=== PATIENT | female | born 2000 | race Caucasian/White ===

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

== ENCOUNTER 2021-03-11 13:48 | Emergency (ER) | payer OTHER ==
[~2021-03-11] VITALS: Ht 165.1 cm; Wt 54.4 kg
[~2021-03-11 13:48] MED LIST changes: +PREDNISONE50 MG PO
[2021-03-11 14:17] LABS: BILIRUBIN Negative (Negative); BLOOD 1+ (Negative); CLARITY Cloudy (Clear); COLOR Dark Yellow (Yellow); GLUCOSE Negative (Negative); KETONE Negative (Negative); LEUKO ESTERASE 3+ (Negative); NITRITE Positive (Negative); PH 5.5 (4.5-8.0); SPECIFIC GRAVITY 1.015 (1.001-1.030)
[2021-03-11 14:33] LABS: BACTERIA 2+; EPITHELIAL CELLS 16-20; RBC 21-30 rbc/hpf (0-2); WBC TNTC wbc/hpf (0-5)
[2021-03-11] MEDS ORDERED: IBUPROFEN600 MG PO (16:11)
[2021-03-11] MEDS ORDERED: SEPTDS PO (16:11)
== END 2021-03-11 16:39 | disposition home or self-care (01) ==
LOC: ED 13:48
PROVIDERS: Physician Assistant
DX: S29.012A Strain of muscle and tendon of back wall of thorax, initial encounter (principal); Z79.899 Other long term (current) drug therapy; X58.XXXA Exposure to other specified factors, initial encounter; Y93.89 Activity, other specified; Y92.89 Other specified places as the place of occurrence of the external cause; Y99.8 Other external cause status

== ENCOUNTER 2021-09-25 21:53 | Emergency (ER) | payer OTHER ==
[~2021-09-25] VITALS: Ht 165.1 cm; Wt 52.2 kg
[~2021-09-25 21:53] MED LIST changes: +IBUPROFEN600 MG PO; +SEPTDS PO
[2021-09-26] MEDS ORDERED: ANTIBIOTIC28.4 GM T (02:40)
[2021-09-26] MEDS ORDERED: CEPHALEXIN500 M1 PO (02:40)
[2021-09-26] MEDS ORDERED: HYDROCODONE-AC1 EAC1 PO (02:58)
== END 2021-09-26 03:14 | disposition home or self-care (01) ==
LOC: ED 21:53
DX: S62.615A Displaced fracture of proximal phalanx of left ring finger, initial encounter for closed fracture (principal); S80.212A Abrasion, left knee, initial encounter; S60.512A Abrasion of left hand, initial encounter; M25.572 Pain in left ankle and joints of left foot; M79.652 Pain in left thigh; Z79.899 Other long term (current) drug therapy; W22.8XXA Striking against or struck by other objects, initial encounter; Y93.89 Activity, other specified; Y92.89 Other specified places as the place of occurrence of the external cause; Y99.8 Other external cause status

== ENCOUNTER → 2021-10-01 | Day surgery (SDC) | payer OTHER ==
[~2021-10-01] VITALS: Ht 167.6 cm; Wt 52.2 kg
[~2021-10-01] MED LIST changes: +ANTIBIOTIC28.4 GM T; +HYDROCODONE-AC1 EAC1 PO
[2021-10-01 09:37] VITALS: BP 106/62
[2021-10-01 12:45] VITALS: BP 134/70
[2021-10-01 13:00] VITALS: BP 119/74
[2021-10-01 13:15] VITALS: BP 123/69
[2021-10-01 13:30] VITALS: BP 118/68
== END | disposition home or self-care (01) ==
LOC: SDC 09-30 13:15
PROVIDERS: ATTEND Orthopaedic Surgery
DX: S62.615A Displaced fracture of proximal phalanx of left ring finger, initial encounter for closed fracture (principal); S63.042A Subluxation of carpometacarpal joint of left thumb, initial encounter; S80.212A Abrasion, left knee, initial encounter; V89.2XXA Person injured in unspecified motor-vehicle accident, traffic, initial encounter; Y93.89 Activity, other specified; Y92.89 Other specified places as the place of occurrence of the external cause; Y99.8 Other external cause status

== ENCOUNTER → 2021-10-18 | Outpatient (CLI) | payer OTHER | END | disposition home or self-care (01) | LOC: ORTHO 00:23 | PROVIDERS: ATTEND Orthopaedic Surgery | DX: S62.615D Displaced fracture of proximal phalanx of left ring finger, subsequent encounter for fracture with routine healing (principal); X58.XXXD Exposure to other specified factors, subsequent encounter ==

== ENCOUNTER → 2021-10-25 | Outpatient (CLI) | payer OTHER | END | disposition home or self-care (01) | LOC: ORTHO 02:20 | PROVIDERS: ATTEND Orthopaedic Surgery | DX: S62.615D Displaced fracture of proximal phalanx of left ring finger, subsequent encounter for fracture with routine healing (principal); S63.042D Subluxation of carpometacarpal joint of left thumb, subsequent encounter; X58.XXXD Exposure to other specified factors, subsequent encounter ==

== ENCOUNTER → 2021-11-15 | Outpatient (CLI) | payer OTHER | END | disposition home or self-care (01) | LOC: ORTHO 01:08 | PROVIDERS: ATTEND Orthopaedic Surgery | DX: S62.615D Displaced fracture of proximal phalanx of left ring finger, subsequent encounter for fracture with routine healing (principal); X58.XXXD Exposure to other specified factors, subsequent encounter ==

== ENCOUNTER → 2021-12-05 | Outpatient (CLI) | payer OTHER | END | disposition home or self-care (01) | LOC: ORTHO 02:17 | PROVIDERS: ATTEND Orthopaedic Surgery | DX: S62.615D Displaced fracture of proximal phalanx of left ring finger, subsequent encounter for fracture with routine healing (principal); S63.042D Subluxation of carpometacarpal joint of left thumb, subsequent encounter; X58.XXXD Exposure to other specified factors, subsequent encounter ==

== ENCOUNTER 2022-01-17 20:09 | Emergency (ER) | payer OTHER ==
[~2022-01-17] VITALS: Ht 165.1 cm; Wt 53.5 kg
[2022-01-17 21:28] LABS: BILIRUBIN Negative (Negative); BLOOD Negative (Negative); CLARITY Clear (Clear); COLOR Yellow (Yellow); GLUCOSE Negative (Negative); KETONE 1+ (Negative); LEUKO ESTERASE Negative (Negative); NITRITE Negative (Negative); SPECIFIC GRAVITY 1.025 (1.001-1.030)
[2022-01-17 21:47] LABS: RBC 0-2 rbc/hpf (0-2); WBC 0-2 wbc/hpf (0-5)
[2022-01-17] MEDS ORDERED: Nizoral 2%15 GM T (22:09)
== END 2022-01-17 22:14 | disposition home or self-care (01) ==
LOC: ED 20:09
PROVIDERS: Emergency Medicine
DX: B35.9 Dermatophytosis, unspecified (principal)

== ENCOUNTER → 2022-02-28 | Outpatient (CLI) | payer OTHER ==
[~2022-02-28] MED LIST changes: +Nizoral 2%15 GM T
== END | disposition home or self-care (01) ==
LOC: ORTHO 04:24
PROVIDERS: ATTEND Orthopaedic Surgery
DX: S63.042D Subluxation of carpometacarpal joint of left thumb, subsequent encounter (principal); S62.615D Displaced fracture of proximal phalanx of left ring finger, subsequent encounter for fracture with routine healing; X58.XXXD Exposure to other specified factors, subsequent encounter

== ENCOUNTER 2023-01-26 21:24 | Emergency (ER) | payer MEDICAID ==
[2023-01-26 22:01] LABS: BILIRUBIN Negative (Negative); BLOOD Negative (Negative); CLARITY Clear (Clear); COLOR Yellow (Yellow); GLUCOSE Negative (Negative); KETONE Negative (Negative); LEUKO ESTERASE Negative (Negative); NITRITE Negative (Negative); PH 6.5 (4.5-8.0); SPECIFIC GRAVITY 1.015 (1.001-1.030); UROBILINOGEN 0.2 E.U./dl (0.0-1.0)
[2023-01-26 22:10] LABS: BACTERIA 1+
[2023-01-26 22:15] LABS: BASO # 0.1 10*3/uL (0.0-0.1); BASO % 0.7 % (0.0-1.0); EOS # 0.1 10*3/uL (0.0-0.4); EOS % 0.8 % (1.0-4.0); HEMATOCRIT 42.9 % (37.0-47.0); LYMPH % 27.2 % (27.0-41.0); MEAN CELL VOLUME 90.7 fl (81.0-99.0); MEAN CORPUSCULAR HGB 31.1 pg (27.0-31.0); MEAN CORPUSCULAR HGB CONC 34.3 g/dl (33.0-37.0); MEAN PLATELET VOLUME 10.1 fl (9.6-12.3); MONO # 0.8 10*3/uL (0.1-1.0); MONO % 6.9 % (3.0-9.0); NEUT % 64.1 % (47.0-73.0); PLATELET COUNT AUTOMATED 194 10*3/uL (130-400); RED BLOOD COUNT 4.73 10*6/uL (4.10-5.10)
[2023-01-26 22:39] LABS: ALKALINE PHOSPHATASE 69 U/L (46-116); BUN 13 mg/dl (9-23); CHLORIDE 104 mmol/L (98-107); POTASSIUM 3.8 mmol/L (3.4-5.1); SGPT/ALT 19 U/L (5-49); TOTAL PROTEIN 7.3 gm/dL (6.0-8.0)
== END 2023-01-26 22:57 | disposition home or self-care (01) ==
LOC: ED 21:24
PROVIDERS: Nurse Practitioner Family
DX: R55 Syncope and collapse (principal); H53.8 Other visual disturbances; F41.9 Anxiety disorder, unspecified; Z79.899 Other long term (current) drug therapy; Z96.22 Myringotomy tube(s) status

== ENCOUNTER 2023-03-21 23:39 | Emergency (ER) | payer MEDICAID ==
[2023-03-22 00:37] LABS: BILIRUBIN Negative (Negative); BLOOD Negative (Negative); CLARITY Clear (Clear); COLOR Yellow (Yellow); GLUCOSE Negative (Negative); KETONE Negative (Negative); LEUKO ESTERASE Negative (Negative); NITRITE Negative (Negative); UROBILINOGEN 0.2 E.U./dl (0.0-1.0)
[2023-03-22 00:52] LABS: EPITHELIAL CELLS 41-50
[2023-03-22 00:53] LABS: BACTERIA TRACE
[2023-03-22 00:56] LABS: BASO # 0.1 10*3/uL (0.0-0.1); BASO % 0.8 % (0.0-1.0); EOS # 0.1 10*3/uL (0.0-0.4); EOS % 2.3 % (1.0-4.0); HEMATOCRIT 45.3 % (37.0-47.0); MEAN CELL VOLUME 95.6 fl (81.0-99.0); MEAN CORPUSCULAR HGB 30.8 pg (27.0-31.0); MEAN CORPUSCULAR HGB CONC 32.2 g/dl (33.0-37.0); MONO # 0.6 10*3/uL (0.1-1.0); NEUT # 3.4 10*3/uL (2.3-7.9); NEUT % 54.7 % (47.0-73.0); PLATELET COUNT AUTOMATED 228 10*3/uL (130-400); RED BLOOD COUNT 4.74 10*6/uL (4.10-5.10); RED CELL DISTRI WIDTH 12.3 % (0-14.5); WHITE BLOOD COUNT 6.1 10*3/uL (4.8-10.8)
[2023-03-22 00:58] LABS: ALKALINE PHOSPHATASE 58 U/L (46-116); BUN 14 mg/dl (9-23); CHLORIDE 106 mmol/L (98-107); POTASSIUM 3.9 mmol/L (3.4-5.1); SGPT/ALT 19 U/L (5-49)
== END 2023-03-22 02:37 | disposition home or self-care (01) ==
LOC: ED 23:39
PROVIDERS: Emergency Medicine
DX: R53.83 Other fatigue (principal); R52 Pain, unspecified; R11.0 Nausea; F41.9 Anxiety disorder, unspecified; Z79.899 Other long term (current) drug therapy; Z96.22 Myringotomy tube(s) status

== ENCOUNTER 2023-07-03 07:26 | Emergency (ER) | payer OTHER, MEDICAID ==
[~2023-07-03] VITALS: Ht 167.6 cm; Wt 54.4 kg
[2023-07-03] MEDS ORDERED: MELOXICAM15 MG PO (07:48)
[2023-07-03] MEDS ORDERED: CEPHALEXIN500 M1 PO (07:48)
[2023-07-03] MEDS ORDERED: Lidocaine Hydrochloride 2 ML AMP SC ONE (08:05)
== END 2023-07-03 09:39 | disposition home or self-care (01) ==
LOC: ED 07:26
DX: S61.012A Laceration without foreign body of left thumb without damage to nail, initial encounter (principal); F41.9 Anxiety disorder, unspecified; F90.9 Attention-deficit hyperactivity disorder, unspecified type; Z98.890 Other specified postprocedural states; W31.89XA Contact with other specified machinery, initial encounter; Y93.89 Activity, other specified; Y92.89 Other specified places as the place of occurrence of the external cause; Y99.0 Civilian activity done for income or pay

== ENCOUNTER 2023-11-24 15:15 | Emergency (ER) | payer OTHER ==
[~2023-11-24] VITALS: Ht 165.1 cm; Wt 59.9 kg
[~2023-11-24 15:15] MED LIST changes: +AMOX-CLAV 875-1 EACH PO; +MELOXICAM15 MG PO
[2023-11-24] MEDS ORDERED: METRONIDAZOLE 500 MG TAB PO ONE (15:45)
[2023-11-24] MEDS ORDERED: AZITHROMYCIN 250 MG TAB PO ONE (15:45)
[2023-11-24] MEDS ORDERED: Water, Sterile 10 ML VIAL ONE (16:07)
[2023-11-24 16:27] LABS: BILIRUBIN Negative (Negative); BLOOD Negative (Negative); CLARITY Clear (Clear); COLOR Yellow (Yellow); GLUCOSE Negative (Negative); KETONE Negative (Negative); LEUKO ESTERASE 2+ (Negative); NITRITE Negative (Negative); UROBILINOGEN 0.2 E.U./dl (0.0-1.0)
[2023-11-24 16:31] LABS: PH 8.5 (4.5-8.0)
[2023-11-24 16:42] LABS: BACTERIA 1+; RBC 0-2 rbc/hpf (0-2); WBC 21-30 wbc/hpf (0-5)
== END 2023-11-24 16:51 | disposition home or self-care (01) ==
LOC: ED 15:15
PROVIDERS: Nurse Practitioner
DX: A59.9 Trichomoniasis, unspecified (principal); F41.9 Anxiety disorder, unspecified; F90.9 Attention-deficit hyperactivity disorder, unspecified type; Z88.1 Allergy status to other antibiotic agents; Z98.890 Other specified postprocedural states

== ENCOUNTER 2023-12-06 14:30 | Emergency (ER) | payer OTHER ==
[~2023-12-06] VITALS: Ht 165.1 cm; Wt 58.1 kg
[2023-12-06] MEDS ORDERED: Bacitracin Zinc 14 GM TUBE T ONE (15:30)
== END 2023-12-06 15:34 | disposition home or self-care (01) ==
LOC: ED 14:30
DX: S60.022A Contusion of left index finger without damage to nail, initial encounter (principal); Z88.1 Allergy status to other antibiotic agents; Z96.22 Myringotomy tube(s) status; W22.8XXA Striking against or struck by other objects, initial encounter; Y93.89 Activity, other specified; Y92.89 Other specified places as the place of occurrence of the external cause; Y99.8 Other external cause status

== ENCOUNTER 2024-01-06 16:23 | Emergency (ER) | payer OTHER ==
[~2024-01-06] VITALS: Ht 165.1 cm; Wt 56.7 kg
[2024-01-06] MEDS ORDERED: SODIUM CHLORIDE 0.9% 500 ML IV ONE (17:10)
[2024-01-06 17:33] LABS: BASO # 0.1 10*3/uL (0.0-0.1); BASO % 0.7 % (0.0-1.0); EOS # 0.1 10*3/uL (0.0-0.4); EOS % 0.7 % (1.0-4.0); HEMATOCRIT 46.5 % (37.0-47.0); MEAN CELL VOLUME 93.8 fl (81.0-99.0); MEAN CORPUSCULAR HGB 30.8 pg (27.0-31.0); MEAN CORPUSCULAR HGB CONC 32.9 g/dl (33.0-37.0); MONO # 0.7 10*3/uL (0.1-1.0); MONO % 7.5 % (3.0-9.0); NEUT # 5.2 10*3/uL (2.3-7.9); PLATELET COUNT AUTOMATED 219 10*3/uL (130-400); RED BLOOD COUNT 4.96 10*6/uL (4.10-5.10); RED CELL DISTRI WIDTH 11.9 % (0-14.5); WHITE BLOOD COUNT 8.6 10*3/uL (4.8-10.8)
[2024-01-06 18:01] LABS: BUN 11 mg/dl (9-23); CHLORIDE 102 mmol/L (98-107); POTASSIUM 3.2 mmol/L (3.4-5.1)
[2024-01-06] MEDS ORDERED: POTASSIUM CHLORIDE 20 MEQ TAB PO ONE (18:15)
[2024-01-06 18:41] LABS: BILIRUBIN Negative (Negative); BLOOD Negative (Negative); CLARITY Clear (Clear); COLOR Yellow (Yellow); GLUCOSE Negative (Negative); KETONE Negative (Negative); LEUKO ESTERASE 1+ (Negative); NITRITE Negative (Negative); PH 7.5 (4.5-8.0); SPECIFIC GRAVITY <= 1.005 (1.001-1.030); UROBILINOGEN 0.2 E.U./dl (0.0-1.0)
[2024-01-06 19:05] LABS: EPITHELIAL CELLS 21-30
[2024-01-06 19:06] LABS: BACTERIA TRACE
[2024-01-06] MEDS ORDERED: METRONIDAZOLE500 M1 PO (19:16)
[2024-01-06] MEDS ORDERED: METRONIDAZOLE 500 MG TAB PO ONE (19:20)
== END 2024-01-06 19:28 | disposition home or self-care (01) ==
LOC: ED 16:23
PROVIDERS: Nurse Practitioner Family
DX: R55 Syncope and collapse (principal); Z20.2 Contact with and (suspected) exposure to infections with a predominantly sexual mode of transmission; R53.83 Other fatigue; E87.6 Hypokalemia; F90.9 Attention-deficit hyperactivity disorder, unspecified type; Z88.1 Allergy status to other antibiotic agents; Z96.22 Myringotomy tube(s) status

== ENCOUNTER 2024-03-15 22:15 | Emergency (ER) | payer OTHER ==
[~2024-03-15] VITALS: Ht 165.1 cm; Wt 56.7 kg
[~2024-03-15 22:15] MED LIST changes: +METRONIDAZOLE500 M1 PO
[2024-03-15] MEDS ORDERED: CLARITIN10 MG PO (22:25)
[2024-03-15] MEDS ORDERED: METHOCARBAMOL 500 MG TAB PO ONE (22:35)
[2024-03-15] MEDS ORDERED: Ketorolac Tromethamine 30 MG/ML VIAL IM ONE (22:35)
[2024-03-15] MEDS ORDERED: METHOCARBAMOL500 M1 PO (22:39)
[2024-03-15] MEDS ORDERED: NAPROXEN250 MG PO (22:39)
== END 2024-03-15 23:02 | disposition home or self-care (01) ==
LOC: ED 22:15
DX: M26.621 Arthralgia of right temporomandibular joint (principal); H92.01 Otalgia, right ear; Z88.1 Allergy status to other antibiotic agents; Z79.899 Other long term (current) drug therapy; Z96.22 Myringotomy tube(s) status

== ENCOUNTER 2024-04-06 23:41 | Emergency (ER) | payer OTHER ==
[~2024-04-06] VITALS: Ht 160 cm; Wt 61.2 kg
[~2024-04-06 23:41] MED LIST changes: +CLARITIN10 MG PO; +METHOCARBAMOL500 M1 PO; +NAPROXEN250 MG PO
== END 2024-04-07 03:14 | disposition home or self-care (01) ==
LOC: ED 23:41
DX: S00.03XA Contusion of scalp, initial encounter (principal); S09.8XXA Other specified injuries of head, initial encounter; E87.6 Hypokalemia; Z88.1 Allergy status to other antibiotic agents; Z98.890 Other specified postprocedural states; W00.0XXA Fall on same level due to ice and snow, initial encounter; Y93.89 Activity, other specified; Y92.481 Parking lot as the place of occurrence of the external cause; Y99.8 Other external cause status

== ENCOUNTER 2024-05-12 22:19 | Emergency (ER) | payer OTHER ==
[~2024-05-12] VITALS: Ht 165.1 cm; Wt 505.8 kg
== END 2024-05-12 22:59 | disposition home or self-care (01) ==
LOC: ED 22:19
DX: R10.30 Lower abdominal pain, unspecified (principal); R82.998 Other abnormal findings in urine; Z88.1 Allergy status to other antibiotic agents; Z79.899 Other long term (current) drug therapy; Z98.890 Other specified postprocedural states; Z20.2 Contact with and (suspected) exposure to infections with a predominantly sexual mode of transmission

== ENCOUNTER 2024-07-15 18:32 | Emergency (ER) | payer OTHER ==
[~2024-07-15] VITALS: Ht 165.1 cm; Wt 56.7 kg
[2024-07-15] MEDS ORDERED: AMOX-CLAV 875-1 EACH PO (19:27)
[2024-07-15] MEDS ORDERED: Amoxicillin/Clavulanate Pota 875 MG TAB PO ONE (19:30)
[2024-07-15] MEDS ORDERED: Acetaminophen/Hydrocodone 5 MG/325 MG TABLET PO ONE (19:30)
== END 2024-07-15 19:41 | disposition home or self-care (01) ==
LOC: ED 18:32
DX: R22.0 Localized swelling, mass and lump, head (principal); R68.84 Jaw pain; Z88.1 Allergy status to other antibiotic agents; Z79.899 Other long term (current) drug therapy; Z98.890 Other specified postprocedural states; Z96.22 Myringotomy tube(s) status

== ENCOUNTER 2024-08-09 23:39 | Emergency (ER) | payer OTHER ==
[~2024-08-09] VITALS: Ht 165.1 cm; Wt 59.0 kg
[2024-08-10] MEDS ORDERED: Ondansetron Hydrochloride 4 MG TAB SL ONE (00:40)
[2024-08-10] MEDS ORDERED: Acetaminophen/Hydrocodone 5 MG/325 MG TABLET PO ONE (00:40)
[2024-08-10] MEDS ORDERED: PENICILLIN V POTASSIUM 500 MG TAB PO ONE (00:40)
[2024-08-10] MEDS ORDERED: PENICILLIN VK500 MG PO (01:01)
== END 2024-08-10 01:07 | disposition home or self-care (01) ==
LOC: ED 23:39
DX: K02.9 Dental caries, unspecified (principal); F41.9 Anxiety disorder, unspecified; Z79.899 Other long term (current) drug therapy; Z88.1 Allergy status to other antibiotic agents; Z98.890 Other specified postprocedural states

== ENCOUNTER 2024-09-14 00:58 | Emergency (ER) | payer OTHER ==
[~2024-09-14] VITALS: Ht 162.5 cm; Wt 56.7 kg
[~2024-09-14 00:58] MED LIST changes: +PENICILLIN VK500 MG PO
[2024-09-14] MEDS ORDERED: PREDNISONE50 MG PO (01:28)
[2024-09-14] MEDS ORDERED: HYDROXYZINE HCL25 MG PO (01:28)
[2024-09-14] MEDS ORDERED: Dexamethasone Sodium Phospha 20 MG/5 ML VIAL IM ONE (01:30)
== END 2024-09-14 01:51 | disposition home or self-care (01) ==
LOC: ED 00:58
DX: S80.861A Insect bite (nonvenomous), right lower leg, initial encounter (principal); S80.862A Insect bite (nonvenomous), left lower leg, initial encounter; W57.XXXA Bitten or stung by nonvenomous insect and other nonvenomous arthropods, initial encounter; Y93.89 Activity, other specified; Y92.89 Other specified places as the place of occurrence of the external cause; Y99.8 Other external cause status

== ENCOUNTER 2025-01-09 03:56 | Emergency (ER) | payer SELFPAY ==
[~2025-01-09] VITALS: Ht 160 cm; Wt 55.8 kg
[~2025-01-09 03:56] MED LIST changes: +HYDROXYZINE HCL25 MG PO
[2025-01-09 04:31] LABS: BASO # 0.1 10*3/uL (0.0-0.1); BASO % 0.9 % (0.0-1.0); EOS # 0.1 10*3/uL (0.0-0.4); EOS % 1.0 % (1.0-4.0); MEAN CELL VOLUME 92.4 fl (81.0-99.0); MEAN CORPUSCULAR HGB 31.0 pg (27.0-31.0); MEAN PLATELET VOLUME 9.9 fl (9.6-12.3); MONO # 0.7 10*3/uL (0.1-1.0); MONO % 8.1 % (3.0-9.0); NEUT # 5.1 10*3/uL (2.3-7.9); NEUT % 56.3 % (47.0-73.0); NUCLEATED RED BLOOD CELL 0.0 % (0.0-0.0); NUCLEATED RED BLOOD CELL 0.0 10*3/uL (0.0-0.0); PLATELET COUNT AUTOMATED 223 10*3/uL (130-400); RED CELL DISTRI WIDTH 11.9 % (0-14.5)
[2025-01-09 04:31] LABS: BILIRUBIN Negative (Negative); BLOOD Negative (Negative); CLARITY Cloudy (Clear); COLOR Yellow (Yellow); KETONE Negative (Negative); LEUKO ESTERASE 1+ (Negative); NITRITE Negative (Negative); PH 7.0 (4.5-8.0); SPECIFIC GRAVITY 1.015 (1.001-1.030); URINE AMPHETAMINES Negative (1000ng/ml); URINE BARBITURATES Negative (200ng/ml); URINE BENZODIAZEPINES Negative (200ng/ml); URINE CANNABINOIDS (THC) Negative (50ng/ml); URINE COCAINE Negative (300ng/ml); URINE METHADONE Negative (300ng/ml); URINE OPIATES Negative (300ng/ml); URINE PHENCYCLIDINE Negative (25ng/ml); UROBILINOGEN 0.2 E.U./dl (0.0-1.0)
[2025-01-09 04:32] LABS: BACTERIA 1+; RBC 0-2 rbc/hpf (0-2); WBC 41-50 wbc/hpf (0-5)
[2025-01-09 05:00] LABS: BUN 9 mg/dl (9-23); SGPT/ALT 33 U/L (5-49)
[2025-01-09 05:01] LABS: ETHYL ALCOHOL < 3.0 mg/dl (<3)
== END 2025-01-09 11:13 | disposition home or self-care (01) ==
LOC: ED 03:56
PROVIDERS: Internal Medicine
DX: F39 Unspecified mood [affective] disorder (principal); F41.9 Anxiety disorder, unspecified; F90.9 Attention-deficit hyperactivity disorder, unspecified type; Z79.899 Other long term (current) drug therapy; Z88.5 Allergy status to narcotic agent